=== PATIENT | female | born 1965 | race Caucasian/White ===

== ENCOUNTER → 2016-12-14 | Outpatient (CLI) | payer BC | LOC: RAD 10:13 | PROVIDERS: ATTEND Internal Medicine | DX: C18.7 Malignant neoplasm of sigmoid colon (principal) | CPT/HCPCS: 71260; 74177 ==

== ENCOUNTER → 2017-01-01 | Outpatient (CLI) | payer BC | LOC: SP 09:03 | PROVIDERS: ATTEND Internal Medicine | DX: I82.411 Acute embolism and thrombosis of right femoral vein (principal) | CPT/HCPCS: 93971 ==

== ENCOUNTER → 2017-12-09 | Outpatient (CLI) | payer BC ==
--- NOTE | 2017-12-09 11:31 | RADIOLOGY REPORT (SQ) ---
EXAM DESCRIPTION: CT CHEST WITH COMPLETED DATE/TIME: 12/09/2017 9:38 am REASON FOR STUDY: C18.7 MALIGNANT NEOPLASM OF SIGMOID COLON C18.7 MALIGNANT NEOPLASM OF SIGMOID COL ON COMPARISON: 12/14/2016 TECHNIQUE: CT scan of the chest performed using helical scanning technique with dynamic intravenous contrast injection. Images reviewed with lung, soft tissue and bone windows. Reconstructed coronal and sagittal MPR images reviewed. All images stored on PACS. All CT scanners at this facility use dose modulation, iterative reconstruction, and/or weight based d osing when appropriate to reduce radiation dose to as low as reasonably achievable (ALARA). [facility]: Dose Right [facility]: CareDose [facility]: Dose Right [facility]: Teradose 4D [facility]: TeleDNA CONTRAST TYPE AND DOSE: 93 ML Isovue 370 RENAL FUNCTION: Creatinine -0.6 BUN= 20 RADIATION DOSE: Total exam DLP: 1858.92 LIMITATIONS: None. FINDINGS: LUNGS AND PLEURA: Stable small 3-4 mm nodule in the periphery of the right upper lobe, ax ial image 50, series 6. Slight pleural thickening and mild dependent atelectasis or scar in the post erior aspect of the lungs. No pneumothorax or pleural effusion. The central airways are clear. HILAR AND MEDIASTINAL STRUCTURES: No identified masses or abnormal nodes. HEART AND VASCULAR STRUCTURES: No aneurysm or dissection. No central pulmonary emboli. No pericardi al effusion. HARDWARE: Left Cleiss-V-Kbri catheter, stable finding. UPPER ABDOMEN: No significant findings. Limited exam. THYROID AND OTHER SOFT TISSUES: No masses. No adenopathy. BONES: No significant finding. OTHER: No other significant finding. IMPRESSION: 1 No significant interval changes since the previous examination dated 12/14/2016. 2 Stable small subcentimeter right upper lobe pulmonary nodule. TECHNICAL DOCUMENTATION: JOB ID: [id number] Quality ID # [id number]: Final reports with documentation of one or more dose reduction techniques (e.g., Au tomated exposure control, adjustment of the mA and/or kV according to patient size, use of iterative reconstruction technique) 2010 [employer]- All Rights Reserved Reading location - IP/workstation name: [email or web address]
--- NOTE | 2017-12-09 11:48 | RADIOLOGY REPORT (SQ) ---
EXAM DESCRIPTION: CT ABD/PELVIS WITH IV ORAL COMPLETED DATE/TIME: 12/09/2017 9:38 am REASON FOR STUDY: C18.7 C18.7 MALIGNANT NEOPLASM OF SIGMOID COLON COMPARISON: 12/14/2016 TECHNIQUE: CT scan of the abdomen and pelvis performed using helical scanning technique with dynamic intravenous contrast injection. No oral contrast. Images reviewed with lung, soft tissue, and bone windows. Reconstructed coronal and sagittal MPR images reviewed. Delayed images for evaluation of the urinary system also acquired. All images stored on PACS. All CT scanners at this facility use dose modulation, iterative reconstruction, and/or weight based d osing when appropriate to reduce radiation dose to as low as reasonably achievable (ALARA). [facility]: Dose Right [facility]: CareDose [facility]: Dose Right [facility]: Teradose 4D [facility]: [employer] CONTRAST TYPE AND DOSE: contrast/concentration: Isovue 370.00 mg/ml; Total Contrast Delivered: 93.0 ml; Total Saline Delivered: 71.0 ml RENAL FUNCTION: Creatinine- 0.6 BUN =20 RADIATION DOSE: CT Rad equipment meets quality standard of care and radiation dose reduction techniq ues were employed. CTDIvol: 10.9 - 13.5 mGy. DLP: 1859 mGy-cm.. LIMITATIONS: None. FINDINGS: LOWER CHEST: Please see CT chest report. LIVER: Fatty liver, stable finding. No dilated ducts. The hepatic and portal veins are patent. SPLEEN: Small splenule, normal anatomic variant, stable finding. Splenomegaly, unchanged finding. PANCREAS: No masses. No significant calcifications. No adjacent inflammation or peripancreatic fluid collections. Pancreatic duct not dilated. GALLBLADDER: Porcelain gallbladder, unchanged finding. ADRENAL GLANDS: No significant masses or asymmetry. RIGHT KIDNEY AND URETER: Stable right renal cysts. Extrarenal pelvis on the right, normal anatomic variant. No significant calcifications. No hydronephrosis or hydroureter. LEFT KIDNEY AND URETER: Extrarenal pelvis on the left, normal anatomic variant. Small left renal cy sts. No significant calcifications. No hydronephrosis or hydroureter. AORTA AND VESSELS: Stent and the right common iliac vein, unchanged finding. As on the previous exa mination, low attenuated central density in the IVC extending into the right common iliac vein stent, partial thrombosis cannot be entirely excluded. No aneurysm. No dissection. Two patent right and l eft renal arteries are suggested. RETROPERITONEUM: No retroperitoneal adenopathy, hemorrhage or masses. BOWEL AND PERITONEAL CAVITY: Partial colectomy and stable post surgical changes in the pelvic region with soft tissue thickening/scar in the presacral region at about the S2-S3 level, axial image 46, s eries 605. Constipation. No free fluid. APPENDIX: Normal. PELVIS: Partial hysterectomy. No free fluid. Normal bladder. ABDOMINAL WALL: Post surgical changes, stable finding. BONES: The osseous structures are stable in appearance. OTHER: Small stable hiatal hernia. IMPRESSION: 1 No significant interval changes since the prior examination dated 12/14/2016. Partial colectomy. Stable post surgical changes. 2 Additional stable findings as detailed above in the report. TECHNICAL DOCUMENTATION: JOB ID: [id number] Quality ID # [id number]: Final reports with documentation of one or more dose reduction techniques (e.g., Au tomated exposure control, adjustment of the mA and/or kV according to patient size, use of iterative reconstruction technique) 2010 [employer]- All Rights Reserved Reading location - IP/workstation name: [email or web address]
== END ==
LOC: RAD 09:04
PROVIDERS: ATTEND Internal Medicine
DX: C18.7 Malignant neoplasm of sigmoid colon (principal)
CPT/HCPCS: 71260; 74177

== ENCOUNTER 2018-09-09 07:28 | Emergency (ER) | payer BC ==
[2018-09-09] MEDS ORDERED: MORPHINE SULFATE 10 MG/ML INJ IM ONE (08:36)
--- NOTE | 2018-09-09 08:38 | ER Document Report ---
ED General - General Chief Complaint: Low Back Pain Stated Complaint: BACK PAIN Time Seen by Provider: 09/09/18 07:46 Mode of Arrival: Ambulatory Information source: Patient TRAVEL OUTSIDE OF THE [place] IN LAST 30 DAYS: No - HPI Patient complains to provider of: Back pain Onset: Other - 53-year-old female with a history of colon cancer status post partial colectomy with reanastomosis and radiation and chemo treatment the presents for evaluation of back pain which began while she was at [employer] sitting on the toilet. She denies any fevers or chills, she denies any diarrhea constipation dysuria. She notes that this is worsened over the last day and today while she was at work she was told by her boss to come to the emergency room for evaluation. She is never had any pain like this in the past, does not have any known back pains in the past, denies any history of stones in the past. - Related Data Allergies/Adverse Reactions: Penicillins Allergy (Verified 09/09/18 07:29) Hives Past Medical History - General Information source: Patient - Social History Smoking Status: Never Smoker Chew tobacco use (# tins/day): No Frequency of alcohol use: None Drug Abuse: None Family History: Reviewed & Not Pertinent Patient has suicidal ideation: No Patient has homicidal ideation: No - Past Medical History Cardiac Medical History: Reports: Hx Hypertension Denies: Hx Coronary Artery Disease, Hx Heart Attack Pulmonary Medical History: Denies: Hx Asthma, Hx Bronchitis, Hx COPD, Hx Pneumonia Neurological Medical History: Denies: Hx Cerebrovascular Accident, Hx Seizures Endocrine Medical History: Reports: Hx Diabetes Mellitus Type 2 Renal/ Medical History: Denies: Hx Peritoneal Dialysis Malignancy Medical History: Reports: Hx Colorectal Cancer - Stage II a Musculoskeletal Medical History: Denies Hx Arthritis, Reports Hx Musculoskeletal Trauma Traumatic Medical History: Reports: Hx Fractures Past Surgical History: Reports: Hx Breast Surgery - reduction, Hx Section, Hx Hysterectomy, Hx Orthopedic Surgery - left ankle, Hx Tubal Ligation - Immunizations Immunizations up to date: Yes Hx Diphtheria, Pertussis, Tetanus Vaccination: Yes Review of Systems - Review of Systems -: Yes All other systems reviewed and negative Physical Exam - Vital signs Vitals: Temp Pulse Resp BP Pulse Ox 97.8 F 92 20 144/85 H 99 09/09/18 07:31 09/09/18 07:31 09/09/18 07:31 09/09/18 07:31 09/09/18 07:31 - General General appearance: Appears well, Alert - HEENT Head: Normocephalic, Atraumatic Eyes: Normal Pupils: PERRL - Respiratory Respiratory status: No respiratory distress Chest status: Nontender Breath sounds: Normal Chest palpation: Normal - Cardiovascular Rhythm: Regular Heart sounds: Normal auscultation Murmur: No - Abdominal Inspection: Normal Distension: No distension Bowel sounds: Normal Tenderness: Nontender Organomegaly: No organomegaly - Back Back: Tender - Tenderness in the right paraspinal muscle of the lumbar spine - Extremities General upper extremity: Normal inspection, Nontender, Normal color, Normal ROM , Normal temperature General lower extremity: Normal inspection, Nontender, Normal color, Normal ROM , Normal temperature, Normal weight bearing. No: Oni's sign - Neurological Neuro grossly intact: Yes Cognition: Normal Orientation: AAOx4 Russell Coma Scale Eye Opening: Spontaneous Russell Coma Scale Verbal: Oriented Russell Coma Scale Motor: Obeys Commands Bin Coma Scale Total: 15 Speech: Normal Motor strength normal: LUE, RUE, LLE, RLE Sensory: Normal - Psychological Associated symptoms: Normal affect, Normal mood Course - Re-evaluation Re-evalutation: 09/09/18 16:02 53-year-old female presents for evaluation of low back pain in the setting of having sat down onto a toilet while at [employer] 2 days prior with resultant tenderness and tightness in her right lower back. She has had intense pain there since. She is never any problems like this in the past, has had some back pain but never anything like this. Nothing is made it better, nothing makes it worse. She denies any other episodes to suggest more serious underlying cause of her back pain such as but not limited to AAA, nephrolithiasis or otherwise. Do a concern because of her multiple medical comorbidities however that this could be a more serious underlying cause as such we will obtain CT abdomen and pelvis. We will administer morphine as well as Toradol for muscle pain. Following a ministration of analgesics in the emergency department her pain was much improved. CT the abdomen and pelvis demonstrated a porcelain gallbladder, because of the concern for this representing the development of a potential malignancy will obtain ultrasound of the gallbladder. I did discuss with the patient this finding. She does have a known history of cancer in the abdomen previously with colon cancer status post resection and treatment. Ultrasound demonstrated again a porcelain gallbladder with some sludge however there is no obvious tumor that is appreciable. Spoke to the on-call surgical list Dr. Dorsey who notes that this could be followed up in clinic. She will be referred to the surgical clinic. She will be given a brief course of medication to use for her back pain as I believe this is musculoskeletal in origin. She will be discharged with return precautions and encouraged follow-up with her primary physician. - Vital Signs Vital signs: Temp Pulse Resp BP Pulse Ox 97.6 F 92 16 114/77 96 09/09/18 14:39 09/09/18 07:31 09/09/18 14:39 09/09/18 14:39 09/09/18 14:39 - Laboratory Result Diagrams: 09/09/18 08:30 09/09/18 08:30 Laboratory results interpreted by me: 09/09/18 09/09/18 09/09/18 08:30 08:30 09:25 RBC 5.61 H MCV 77 L MCH 25.6 L RDW 14.7 H BUN 27 H Glucose 300 H Calcium 11.0 H Total Bilirubin 1.6 H AST 46 H Total Protein 8.5 H Urine Protein 100 H Urine Glucose (UA) 150 H Urine Nitrite POSITIVE H Urine Urobilinogen 4.0 H Discharge - Discharge Clinical Impression: Porcelain gallbladder Back pain Qualifiers: Back pain location: back pain in unspecified location Chronicity: acute Back pain laterality: unspecified Qualified Code(s): M54.9 - Dorsalgia, unspecified Condition: Good Disposition: HOME, SELF-CARE Instructions: Gallbladder Disease ([facility]), Muscle Strain ([facility]), Low Back Pain ( [facility]) Additional Instructions: Your seen today in the emergency room for your back pain. While you are being evaluated for your back pain was identified that you have a gallbladder which is thickened. I think that your gallbladder is thickened, I spoke to 1 of the surgical doctors here Dr. Dorsey who suggested that you follow-up in the surgery clinic because they would be happy to see you. Your ultrasound does not demonstrate an obvious cancer in your gallbladder at this time. It is important that you return in case of any worsening abdominal pain. Fevers , chills. Prescriptions: Cyclobenzaprine HCl [Flexeril 5 mg Tablet] 5 mg PO TID #15 tablet Lidocaine HCl [Xylocaine 2% Jelly 30 ml Tube] 30 ml MM DAILYP PRN #1 tube PRN Reason: Referrals: GRAY BULLARD MD [Primary Care Provider] - Follow up as needed JS DORSEY MD [[facility]] - Follow up in 1 week
[2018-09-09 09:01] LABS: ABSOLUTE BASOPHILS # (AUTO) 0.1 10^3/uL (0.0-0.2); ABSOLUTE LYMPHOCYTES (AUTO) 2.2 10^3/uL (0.5-4.7); ABSOLUTE MONOCYTES (AUTO) 0.4 10^3/uL (0.1-1.4); ABSOLUTE NEUT (AUTO) 5.1 10^3/uL (1.7-8.2); BASOPHILS % (AUTO) 0.8 % (0-2); EOSINOPHILS % (AUTO) 0.6 % (0-6); HEMATOCRIT 43.4 % (36.0-47.0); HEMOGLOBIN 14.4 g/dL (12.0-15.5); LYMPHOCYTES % (AUTO) 28.2 % (13-45); MEAN CORPUSCULAR HEMOGLOBIN 25.6 pg (27.0-33.4); MEAN CORPUSCULAR HGB CONC 33.1 g/dL (32.0-36.0); MEAN CORPUSCULAR VOLUME 77 fl (80-97); MONOCYTES % (AUTO) 4.5 % (3-13); PLATELET COUNT 250 10^3/uL (150-450); RED BLOOD COUNT 5.61 10^6/uL (3.72-5.28); RED CELL DISTRIBUTION WIDTH 14.7 % (11.5-14.0); SEGMENTED NEUTROPHILS % (AUTO) 65.9 % (42-78); TOTAL CELLS COUNTED % (AUTO) 100 %; WHITE BLOOD COUNT 7.8 10^3/uL (4.0-10.5)
[2018-09-09] MEDS ORDERED: KETOROLAC TROMETHAMINE INJ/PF 30 MG/1 ML SDV IV ONE (09:33)
[2018-09-09] MEDS ORDERED: LIDOCAINE 5% (700 MG) TRANSDERMAL ADH..PATCH TP ONE (09:33)
[2018-09-09 09:40] LABS: APPEARANCE,URINE CLEAR; URINE SPECIFIC GRAVITY 1.026
[2018-09-09 09:49] LABS: BILIRUBIN,URINE NEGATIVE (NEGATIVE); COLOR,URINE ORANGE; GLUCOSE, URINE 150 mg/dL (NEGATIVE); KETONES,URINE NEGATIVE (NEGATIVE); LEUKOCYTE ESTERASE,URINE NEGATIVE (NEGATIVE); NITRITE,URINE POSITIVE (NEGATIVE); PROTEIN,URINE 100 mg/dL (NEGATIVE)
[2018-09-09 10:08] LABS: ALANINE AMINOTRANSFERASE 44 U/L (9-52); ALBUMIN 4.4 g/dL (3.5-5.0); ALKALINE PHOSPHATASE 111 U/L (38-126); ANION GAP 14 (5-19); ASPARTATE AMINO TRANSFERASE 46 U/L (14-36); BILIRUBIN,TOTAL 1.6 mg/dL (0.2-1.3); BLOOD UREA NITROGEN 27 mg/dL (7-20); CARBON DIOXIDE 24 mmol/L (22-30); CHLORIDE 105 mmol/L (98-107); GLUCOSE 300 mg/dL (75-110); LIPASE 227.9 U/L (23-300); POTASSIUM 4.5 mmol/L (3.6-5.0); SODIUM 143.3 mmol/L (137-145); TOTAL PROTEIN 8.5 g/dL (6.3-8.2)
--- NOTE | 2018-09-09 12:16 | RADIOLOGY REPORT (SQ) ---
EXAM DESCRIPTION: CT ABD/PELVIS WITH IV ONLY COMPLETED DATE/TIME: 09/09/2018 8:38 am REASON FOR STUDY: concern for obstructing left nephrolithiasis COMPARISON: 12/09/2017 TECHNIQUE: CT scan of the abdomen and pelvis performed using helical scanning technique with dynamic intravenous contrast injection. No oral contrast. Images reviewed with lung, soft tissue, and bone windows. Reconstructed coronal and sagittal MPR images reviewed. Delayed images for evaluation of the urinary system also acquired. All images stored on PACS. All CT scanners at this facility use dose modulation, iterative reconstruction, and/or weight based d osing when appropriate to reduce radiation dose to as low as reasonably achievable (ALARA). [facility]: Dose Right [facility]: CareDose [facility]: Dose Right [facility]: Teradose 4D [facility]: IP [employer] CONTRAST TYPE AND DOSE: Omnipaque 350 94 cc RENAL FUNCTION: BUN 27, creatinine 0.93 RADIATION DOSE: . LIMITATIONS: None. FINDINGS: LOWER CHEST: No significant findings. No nodules or infiltrates. LIVER: Normal size. No masses. No dilated ducts. SPLEEN: Normal size. No focal lesions. PANCREAS: No masses. No significant calcifications. No adjacent inflammation or peripancreatic fluid collections. Pancreatic duct not dilated. GALLBLADDER: Porcelain gallbladder with new area of hypoattenuation along the wall measuring 1.1 by 1.8 cm. No secondary evidence of acute cholecystitis. No radiopaque gallstones. ADRENAL GLANDS: No significant masses or asymmetry. RIGHT KIDNEY AND URETER: Stable exophytic right renal cyst. No solid masses. No significant calcif ications. No hydronephrosis or hydroureter. LEFT KIDNEY AND URETER: No solid masses. No significant calcifications. No hydronephrosis or hydr oureter. AORTA AND VESSELS: No aneurysm. Right iliac vein stent, unchanged. RETROPERITONEUM: No retroperitoneal adenopathy, hemorrhage or masses. BOWEL AND PERITONEAL CAVITY: No masses or inflammatory changes. No free fluid or peritoneal masses. APPENDIX: Normal. PELVIS: No mass. No free fluid. Normal bladder. ABDOMINAL WALL: No masses. No hernias. BONES: No significant or acute findings. OTHER: No other significant finding. IMPRESSION: Porcelain gallbladder with new area of hypoattenuation along the wall measuring 1.1 by 1 .8 cm. Consider ultrasound for further characterization. No evidence of nephrolithiasis or obstructive uropathy. TECHNICAL DOCUMENTATION: JOB ID: [id number] Quality ID # [id number]: Final reports with documentation of one or more dose reduction techniques (e.g., Au tomated exposure control, adjustment of the mA and/or kV according to patient size, use of iterative reconstruction technique) 2010 [employer]- All Rights Reserved Reading location - IP/workstation name: [email or web address]
[2018-09-09] MEDS ORDERED: FENTANYL CITRATE INJ/PF 100 MCG/2 ML AMPUL IV ONE (14:02)
--- NOTE | 2018-09-09 14:36 | RADIOLOGY REPORT (SQ) ---
EXAM DESCRIPTION: U/S ABDOMEN LIMITED W/O DOP COMPLETED DATE/TIME: 09/09/2018 2:22 pm REASON FOR STUDY: concern for gallbladder cancer COMPARISON: CT abdomen pelvis examination dated 09/09/2018. Limited abdominal ultrasound dated 04/26 TECHNIQUE: Dynamic and static grayscale images acquired of the abdomen and recorded on PACS. Additio nal selected color Doppler and spectral images recorded. LIMITATIONS: None. FINDINGS: PANCREAS: No masses. Visualized pancreatic duct normal caliber. LIVER: Fatty liver. The liver measures 14.8 cm in length, normal size. LIVER VASCULATURE: Normal directional flow of the main portal vein and hepatic veins. GALLBLADDER: Porcelain gallbladder is suggested. Diffuse internal echoes within the gallbladder lum en may be on the basis of gallbladder sludge. No pericholecystic fluid. ULTRASOUND-DETECTED KAUFMAN'S SIGN: Negative. INTRAHEPATIC DUCTS AND COMMON DUCT: CBD measures 4.5 mm in diameter, normal. The intrahepatic ducts normal caliber. No filling defects. INFERIOR VENA CAVA: Normal flow. AORTA: No aneurysm. RIGHT KIDNEY: The right kidney measures 10.9 cm in length, normal size. Normal echogenicity. A 1.8 x 1.8 x 2.3 cm cyst. No hydronephrosis. No calcifications. PERITONEAL AND PLEURAL SPACE: No ascites or effusions. OTHER: No other significant findings. IMPRESSION: 1. Porcelain gallbladder is identified. Diffuse internal echoes within the gallbladder lumen may be on the basis of gallbladder sludge. Correlation suggested. 2. Right renal cyst. 3. Fatty liver. TECHNICAL DOCUMENTATION: JOB ID: [id number] [employer]- All Rights Reserved Reading location - IP/workstation name: [email or web address]
[2018-09-09 15:39] VITALS: BP 118/71
== END 2018-09-09 15:39 | disposition home or self-care (01) ==
LOC: ER 07:28
DX: M54.5 Low back pain (principal); K82.8 Other specified diseases of gallbladder; I10 Essential (primary) hypertension; E11.9 Type 2 diabetes mellitus without complications; Z85.048 Personal history of other malignant neoplasm of rectum, rectosigmoid junction, and anus; Z90.49 Acquired absence of other specified parts of digestive tract; Z92.21 Personal history of antineoplastic chemotherapy; Z92.3 Personal history of irradiation; Z88.0 Allergy status to penicillin
CPT/HCPCS: 99284; 96372; 96374; 96375; 36415; 87086; 83690; 85025; 80053; 81001; 76705; 74177; J3010; J1885; J2270

== ENCOUNTER 2019-02-24 05:52 | Inpatient (IN) | payer BC ==
[2019-02-24] MEDS ORDERED: MORPHINE SULFATE 10 MG/ML INJ IV ONE ×2 (06:14→08:07)
[2019-02-24] MEDS ORDERED: ONDANSETRON HCL INJ/PF 4 MG/2 ML SDV IV ONE (06:14)
[2019-02-24 06:21] LABS: ABSOLUTE BASOPHILS # (AUTO) 0.1 10^3/uL (0.0-0.2); ABSOLUTE LYMPHOCYTES (AUTO) 1.7 10^3/uL (0.5-4.7); ABSOLUTE MONOCYTES (AUTO) 0.3 10^3/uL (0.1-1.4); ABSOLUTE NEUT (AUTO) 3.9 10^3/uL (1.7-8.2); BASOPHILS % (AUTO) 0.9 % (0-2); EOSINOPHILS % (AUTO) 0.8 % (0-6); HEMATOCRIT 39.6 % (36.0-47.0); HEMOGLOBIN 12.8 g/dL (12.0-15.5); LYMPHOCYTES % (AUTO) 28.4 % (13-45); MEAN CORPUSCULAR HEMOGLOBIN 24.8 pg (27.0-33.4); MEAN CORPUSCULAR HGB CONC 32.3 g/dL (32.0-36.0); MEAN CORPUSCULAR VOLUME 77 fl (80-97); MONOCYTES % (AUTO) 5.5 % (3-13); PLATELET COUNT 197 10^3/uL (150-450); RED BLOOD COUNT 5.16 10^6/uL (3.72-5.28); RED CELL DISTRIBUTION WIDTH 14.7 % (11.5-14.0); SEGMENTED NEUTROPHILS % (AUTO) 64.4 % (42-78); TOTAL CELLS COUNTED % (AUTO) 100 %
[2019-02-24 06:40] LABS: ALANINE AMINOTRANSFERASE 36 U/L (9-52); ALBUMIN 4.1 g/dL (3.5-5.0); ALKALINE PHOSPHATASE 120 U/L (38-126); ANION GAP 13 (5-19); ASPARTATE AMINO TRANSFERASE 29 U/L (14-36); BILIRUBIN,DIRECT 0.3 mg/dL (0.0-0.4); BILIRUBIN,TOTAL 1.2 mg/dL (0.2-1.3); BLOOD UREA NITROGEN 16 mg/dL (7-20); CALCIUM 9.6 mg/dL (8.4-10.2); CARBON DIOXIDE 23 mmol/L (22-30); CHLORIDE 108 mmol/L (98-107); GLUCOSE 273 mg/dL (75-110); LIPASE 378.5 U/L (23-300); POTASSIUM 4.4 mmol/L (3.6-5.0); SODIUM 143.6 mmol/L (137-145); TOTAL PROTEIN 7.4 g/dL (6.3-8.2)
[2019-02-24 06:53] LABS: APPEARANCE,URINE SLIGHTLY-CLOUDY; BILIRUBIN,URINE NEGATIVE (NEGATIVE); COLOR,URINE YELLOW; GLUCOSE, URINE >=500 mg/dL (NEGATIVE); KETONES,URINE TRACE mg/dL (NEGATIVE); LEUKOCYTE ESTERASE,URINE SMALL (NEGATIVE); NITRITE,URINE NEGATIVE (NEGATIVE); PROTEIN,URINE NEGATIVE (NEGATIVE); URINE SPECIFIC GRAVITY 1.028; UROBILINOGEN,URINE NEGATIVE mg/dL (<2.0)
--- NOTE | 2019-02-24 07:40 | EKG REPORT ---
SEVERITY:- ABNORMAL ECG - SINUS RHYTHM PROBABLE LEFT ATRIAL ABNORMALITY LEFT VENTRICULAR HYPERTROPHY BORDERLINE T ABNORMALITIES, INFERIOR LEADS : Confirmed by: Glenna Edmondson MD 24-Feb-2019 07:39:51
--- NOTE | 2019-02-24 07:41 | RADIOLOGY REPORT (SQ) ---
EXAM DESCRIPTION: XR CHEST 2 VIEWS COMPLETED DATE/TME: 02/24/2019 06:12 CLINICAL HISTORY: right chest pain COMPARISON: None. FINDINGS: Frontal and lateral views of the chest. Left IJ dual-lumen Mediport with tip in the SVC. The cardiomediastinal silhouette has normal size and contour. No consolidation, pneumothorax, or pleural effusion. Degenerative change of the spine. Elevation of the right hemidiaphragm is stable. Upper abdominal soft tissues are unremarkable. IMPRESSION: 1. No acute pulmonary process identified.
--- NOTE | 2019-02-24 07:46 | RADIOLOGY REPORT (SQ) ---
EXAM: CT abdomen and pelvis without IV contrast CLINICAL DATA: 53-year-old female with right upper quadrant pain TECHNICAL DATA: Axial CT imaging of the abdomen and pelvis was performed. Sagittal and coronal reconstructed images were then performed. The CT study is performed according to ALARA (as low as reasonably achievable) or ALARA/IMAGE GENTLY, with automatic adjustment of mA and/or kV according to patient size. Performed on: 02/24/2019 at 7:03 AM Comparison: None. FINDINGS: Lung bases: The lung bases are essentially clear. There is minimal fibrosis and/or atelectasis in the right lung base. Liver:The liver is normal in size and configuration. No focal hepatic abnormalities are appreciated on this unenhanced scan. There is mild diffuse decreased attenuation of the liver commonly seen with fatty infiltration similar when compared to the prior study. Spleen: The spleen is top normal in size and is normal in configuration and attenuation. No focal splenic abnormalities are appreciated on this unenhanced scan. Gallbladder and bile duct: The gallbladder is well distended. Again demonstrated is gallbladder wall calcification suggesting a porcelain gallbladder. There is increased attenuation within the gallbladder lumen which may be related to sludge. A mass within the gallbladder lumen is not entirely excluded. There is no biliary ductal dilatation. Pancreas: The pancreas is grossly normal in size and configuration. Adrenal Glands:The adrenal glands are normal in size and configuration. Kidneys:The kidneys are normal in size and configuration. There is no evidence of hydronephrosis. There is no evidence of nephrolithiasis. There is a stable exophytic cyst arising from the lateral cortex of the midpole of the right kidney measuring approximately 2 cm. Stomach:The stomach is grossly normal. There is no definite hiatal hernia. Bowel:The bowel gas pattern is non specific and non obstructive. There is moderate fecal residue scattered throughout the colon. There are postsurgical changes in the region of the rectum. Appendix: The appendix is normal. Free air:There is no evidence of free air. Free fluid: There is no evidence of free fluid. Vasculature: The aorta is normal in caliber and contour. The inferior vena cava is grossly unremarkable. There is a metallic stent within the right common iliac vein. Lymphadenopathy: No pathologic lymphadenopathy is identified. Bladder: The bladder is moderately decompressed on this examination. Reproductive: The uterus is surgically absent. Bones: No acute osseous abnormalities are identified. Soft tissues: No focal soft tissue abnormalities are identified. IMPRESSION: 1. Similar findings when compared to the prior study. 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 A mass in the gallbladder lumen is not entirely excluded.. 2. Fatty infiltration of the liver. 3. Stable right renal cyst. 4. Stable right common iliac vein metallic stent. 5. Postsurgical changes in the region of the rectum. 6. Remote hysterectomy.
--- NOTE | 2019-02-24 07:47 | ER Document Report ---
ED General - General Chief Complaint: Rib Pain Stated Complaint: FLANK PAIN Time Seen by Provider: 02/24/19 06:03 Primary Care Provider: GRAY BULLARD MD [Primary Care Provider] - Follow up as needed TRAVEL OUTSIDE OF THE [place] IN LAST 30 DAYS: No - HPI Notes: Patient is a 53-year-old female who presents emergency department for pain in her right chest/upper abdominal area. Is been present for over a week. It is worsened in the last 48 hours. She was trying to get ready for work this morning and it became unbearable. She states his pain is sharp and stabbing, worsened by deep breaths. She has had a cough, although she states it has not been a significant one. She has had nausea but no emesis. Normal bowel movements for her. No urinary symptoms. - Related Data Allergies/Adverse Reactions: Penicillins Allergy (Verified 09/09/18 07:29) Hives Past Medical History - General Information source: Patient - Social History Smoking Status: Never Smoker Chew tobacco use (# tins/day): No Frequency of alcohol use: None Drug Abuse: None Family History: Reviewed & Not Pertinent Patient has suicidal ideation: No Patient has homicidal ideation: No - Past Medical History Cardiac Medical History: Reports: Hx Hypertension Denies: Hx Coronary Artery Disease, Hx Heart Attack Pulmonary Medical History: Denies: Hx Asthma, Hx Bronchitis, Hx COPD, Hx Pneumonia Neurological Medical History: Denies: Hx Cerebrovascular Accident, Hx Seizures Endocrine Medical History: Reports: Hx Diabetes Mellitus Type 2 Renal/ Medical History: Denies: Hx Peritoneal Dialysis Malignancy Medical History: Reports: Hx Colorectal Cancer - Stage II a Musculoskeletal Medical History: Denies Hx Arthritis, Reports Hx Musculoskeletal Trauma Traumatic Medical History: Reports: Hx Fractures Past Surgical History: Reports: Hx Breast Surgery - reduction, Hx Section, Hx Hysterectomy, Hx Orthopedic Surgery - left ankle, Hx Tubal Ligation, Other - Colon resection - Immunizations Immunizations up to date: Yes Hx Diphtheria, Pertussis, Tetanus Vaccination: Yes Review of Systems - Review of Systems Constitutional: No symptoms reported EENT: No symptoms reported Cardiovascular: No symptoms reported Respiratory: See HPI Gastrointestinal: See HPI Genitourinary: No symptoms reported Female Genitourinary: No symptoms reported Musculoskeletal: No symptoms reported Skin: No symptoms reported Neurological/Psychological: No symptoms reported Physical Exam - Vital signs Vitals: Temp Pulse Resp BP Pulse Ox 98.3 F 97 16 154/97 H 96 02/24/19 05:54 02/24/19 05:54 02/24/19 05:54 02/24/19 05:54 02/24/19 05:54 - Notes Notes: Patient is a 53-year-old female, appears her stated age, in a moderate amount of distress due to pain. Vital signs reviewed, please refer to chart. Head is normocephalic, atraumatic. Pupils equal round, reactive to light. Neck is supp le without meningismus. Heart is regular rate and rhythm. Lungs are clear to auscultation bilaterally. Right chest wall is markedly tender to palpation. Chest wall excursion is equal bilaterally. Abdomen is soft, with moderate tenderness in the right upper quadrant. No rebound or guarding.. Extremities without cyanosis, clubbing. Posterior calves are nontender. Peripheral pulses are equal. Skin reveals erythematous patches and vesicles, isolated to the right thorax, at approximately the level of T11. Patient is awake, alert, neurological exam is nonfocal. Course - Re-evaluation Re-evalutation: 02/24/19 07:44 Patient presents emergency department for evaluation of right chest/abdominal pain. Laboratory investigations were obtained, she is medicated with some Aleve. I am concerned about possible pneumonia in this patient, but also a gallbladder pathology that could be contributing to her pain. Patient certainly also has zoster, but I do not believe that the zoster is responsible for this level of pain. Laboratory investigations reveal an elevated glucose, but as of yet are otherwise unremarkable. Awaiting CT scan results. 02/24/19 10:09 Ultrasound is been ordered and resulted. Findings concerning for acute cholecystitis. She does not fact have a 1.5 cm gallstone as well as sludge. Positive sonographic Pappas sign. I spoke with Dr. Dc, on-call surgeon. He will come down to the ED to evaluate the patient. 02/24/19 11:02 Dr. Dc came to the department. He will admit her for further care. Patient was given IV ceftriaxone and admitted to the hospital. - Vital Signs Vital signs: Temp Pulse Resp BP Pulse Ox 98.3 F 97 16 154/97 H 96 02/24/19 05:54 02/24/19 05:54 02/24/19 05:54 02/24/19 05:54 02/24/19 05:54 - Laboratory Result Diagrams: 02/24/19 06:05 02/24/19 06:05 Laboratory results interpreted by me: 02/24/19 02/24/19 02/24/19 06:05 06:05 06:38 MCV 77 L MCH 24.8 L RDW 14.7 H Chloride 108 H Glucose 273 H Lipase 378.5 H Urine Glucose (UA) >=500 H Urine Ketones TRACE H Ur Leukocyte Esterase SMALL H - EKG Interpretation by Me Additional EKG results interpreted by me: 02/24/19 07:47 Sinus mechanism with a rate of 85 bpm. Left axis deviation. Nonspecific ST changes, but no acute changes concerning for ischemia or infarction. No significant change compared to prior study of July 24, 2016 Discharge - Discharge Clinical Impression: Acute cholecystitis Cholelithiasis Qualifiers: Cholelithiasis location: gallbladder Cholecystitis presence: with cholecystitis Condition: Stable Disposition: ADMITTED INPATIENT Admitting Provider: Surgicalist - [facility] Referrals: GRAY BULLARD MD [Primary Care Provider] - Follow up as needed
--- NOTE | 2019-02-24 09:51 | RADIOLOGY REPORT (SQ) ---
EXAM DESCRIPTION: U/S ABDOMEN LIMITED W/O DOP COMPLETED DATE/TIME: 02/24/2019 9:35 am REASON FOR STUDY: eval gallbladder COMPARISON: 09/09/2018 TECHNIQUE: Dynamic and static grayscale images acquired of the abdomen and recorded on PACS. Additio nal selected color Doppler and spectral images recorded. LIMITATIONS: None. FINDINGS: PANCREAS: No masses. Visualized pancreatic duct normal caliber. LIVER: No masses. Increased echogenicity. LIVER VASCULATURE: Normal directional flow of the main portal vein and hepatic veins. 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 Gallbladder wall measures 0.4 cm. There is gall sludge and an echogenic gallstone m easuring 1.4 cm. ULTRASOUND-DETECTED PAPPAS'S SIGN: Positive. INTRAHEPATIC DUCTS AND COMMON DUCT: CBD and intrahepatic ducts normal caliber. No filling defects. INFERIOR VENA CAVA: Normal flow. AORTA: No aneurysm. RIGHT KIDNEY: Normal size. Normal echogenicity. No solid or suspicious masses. Simple appearing exo phytic cysts. No hydronephrosis. No calcifications. PERITONEAL AND RIGHT PLEURAL SPACE: No ascites or effusions. OTHER: No other significant findings. IMPRESSION: 1. Redemonstrated peripheral calcification of the gallbladder wall, in keeping with por celain gallbladder. There is gall sludge and echogenic gallstone measuring 1.4 cm. Positive sonogra phic Pappas's sign. No biliary ductal dilation. Findings are concerning for acute cholecystitis. 2. Hepatic steatosis. TECHNICAL DOCUMENTATION: JOB ID: [id number] [employer]- All Rights Reserved Reading location - IP/workstation name: [email or web address]
[2019-02-24] MEDS ORDERED: NORMAL SALINE 1000 ML 1,000 ML IV ONE (10:51)
[2019-02-24] MEDS ORDERED: CEFTRIAXONE 1 GM/D5W RTU 50 ML IV ONE (10:57)
[2019-02-24] MEDS ORDERED: CEFTRIAXONE 2 GM/D5W RTU 2 GM/50 ML RTUPB IV ONE (11:00)
[2019-02-24] MEDS ORDERED: DEXTROSE 50%-WATER 25 GM/50 ML DISP.SYRIN IV PRN ×2 (11:04)
[2019-02-24] MEDS ORDERED: DEXTROSE 40% GEL 15 GM TUBE PO PRN ×2 (11:04)
[2019-02-24] MEDS ORDERED: GLUCAGON,HUMAN RECOMB 1 MG INJ IM PRN (11:04)
[2019-02-24] MEDS: LEVOFLOXACIN 500 MG/D5W RTU 500 MG/100 ML RTUPB IV SCH (13:30)
[2019-02-24] MEDS: INSULIN REG, HUMAN 100 UNIT/ML 3 ML VIAL (PYX) SUBCUT SCH ×3 (13:37→23:25)
[2019-02-24] MEDS: HYDROMORPHONE HCL INJ/PF 2 MG/ML AMPULE IV PRN ×3 (15:33→23:29)
[2019-02-24] MEDS: LISINOPRIL 10 MG TABLET PO SCH (16:43)
--- NOTE | 2019-02-24 16:43 | PDOC H&P ---
History of Present Illness Admission Date/PCP: GRAY BULLARD MD Patient complains of: Abdominal pain History of Present Illness: ETHAN LEDESMA is a 53 year old female presenting with 1-1/2-week history of intermittent right upper quadrant abdominal pain that became persistent and severe along with epigastric abdominal pain in the last couple of days. Patient has had associated nausea but no emesis. No fevers or chills. No recent weight loss. No jaundice. Patient was diagnosed with a porcelain gallbladder several months ago but she had not seen a surgeon as recommended at that time. Patient does suffer from diabetes. Past Medical History Cardiac Medical History: Reports: Hypertension Denies: Coronary Artery Disease, Myocardial Infarction Pulmonary Medical History: Denies: Asthma, Bronchitis, Chronic Obstructive Pulmonary Disease (COPD), Pneumonia Neurological Medical History: Denies: Seizures Endocrine Medical History: Reports: Diabetes Mellitus Type 2 Malignancy Medical History: Reports: Colorectal Cancer - Status post low anterior resection about 3 years ago. Status post chemo. Musculoskeltal Medical History: Denies: Arthritis Hematology: Reports: Anemia Past Surgical History Past Surgical History: Reports: Section, Hysterectomy, Orthopedic Surgery - left ankle, Tubal Ligation, Other - Low anterior resection Social History Smoking Status: Never Smoker Frequency of Alcohol Use: None Hx Recreational Drug Use: No Family History Family History: Reviewed & Not Pertinent Parental Family History Reviewed: Yes - Mother with colon and pancreatic cancer Children Family History Reviewed: Yes Sibling(s) Family History Reviewed.: Yes Medication/Allergy Home Medications: Glipizide [Glucotrol] 5 mg PO QAM 02/24/19 Lisinopril/Hydrochlorothiazide [Lisinopril-Hctz 20-12.5 mg Tab] 1 each PO DAILY 02/24/19 Metformin HCl [Glucophage 500 mg Tablet] 1,000 mg PO QAM 02/24/19 Metformin HCl [Glucophage 500 mg Tablet] 1,000 mg PO QHS 02/24/19 Metformin HCl [Glucophage 500 mg Tablet] 500 mg PO NOON 02/24/19 Allergies/Adverse Reactions: Penicillins Allergy (Verified 09/09/18 07:29) Hives Review of Systems All systems: reviewed and no additional remarkable complaints except as stated Gastrointestinal: PRESENT: as per HPI Physical Exam Vital Signs: Temp Pulse Resp BP Pulse Ox 98.3 F 97 16 154/97 H 96 02/24/19 05:54 02/24/19 05:54 02/24/19 05:54 02/24/19 05:54 02/24/19 05:54 Intake & Output 02/23/19 02/24/19 02/25/19 06:59 06:59 06:59 Weight 85.729 kg General appearance: PRESENT: no acute distress, cooperative Eye exam: PRESENT: conjunctiva pink Neck exam: PRESENT: other - Supple with no masses. Respiratory exam: PRESENT: clear to auscultation mani Cardiovascular exam: PRESENT: RRR GI/Abdominal exam: PRESENT: other - Soft, mildly distended, tender across her upper abdomen, especially in the right upper quadrant. Extremities exam: PRESENT: other - No swelling and no tenderness Neurological exam: PRESENT: alert, awake Psychiatric exam: PRESENT: appropriate affect Skin exam: PRESENT: warm Results Laboratory Results: 02/24/19 06:05 02/24/19 06:05 02/24/19 02/24/19 02/24/19 06:05 06:05 06:38 WBC 6.0 RBC 5.16 Hgb 12.8 Hct 39.6 MCV 77 L MCH 24.8 L MCHC 32.3 RDW 14.7 H Plt Count 197 Seg Neutrophils % 64.4 Lymphocytes % 28.4 Monocytes % 5.5 Eosinophils % 0.8 Basophils % 0.9 Absolute Neutrophils 3.9 Absolute Lymphocytes 1.7 Absolute Monocytes 0.3 Absolute Eosinophils 0.0 Absolute Basophils 0.1 Sodium 143.6 Potassium 4.4 Chloride 108 H Carbon Dioxide 23 Anion Gap 13 BUN 16 Creatinine 0.66 Est GFR ( Amer) > 60 Est GFR (Non-Af Amer) > 60 Glucose 273 H Calcium 9.6 Total Bilirubin 1.2 AST 29 ALT 36 Alkaline Phosphatase 120 Total Protein 7.4 Albumin 4.1 Lipase 378.5 H Urine Color YELLOW Urine Appearance SLIGHTLY-CLOUDY Urine pH 5.0 Ur Specific [place] 1.028 Urine Protein NEGATIVE Urine Glucose (UA) >=500 H Urine Ketones TRACE H Urine Blood NEGATIVE Urine Nitrite NEGATIVE Ur Leukocyte Esterase SMALL H Urine WBC (Auto) 12 Urine RBC (Auto) 4 Impressions: Chest X-Ray 02/24/19 06:12 IMPRESSION: 1. No acute pulmonary process identified. Abdomen/Pelvis CT 02/24/19 06:13 IMPRESSION: 1. Similar findings when compared to the prior study. 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 A mass in the gallbladder lumen is not entirely excluded.. 2. Fatty infiltration of the liver. 3. Stable right renal cyst. 4. Stable right common iliac vein metallic stent. 5. Postsurgical changes in the region of the rectum. 6. Remote hysterectomy. Abdomen Ultrasound 02/24/19 08:06 IMPRESSION: 1. Redemonstrated peripheral calcification of the gallbladder wall, in keeping with porcelain gallbladder. There is gall sludge and echogenic gallstone measuring 1.4 cm. Positive sonographic Pappas's sign. No biliary ductal dilation. Findings are concerning for acute cholecystitis. 2. Hepatic steatosis. Assessment & Plan - Diagnosis (1) Pancreatitis Qualifiers: Chronicity: acute Is this a current diagnosis for this admission?: Yes Plan: Possible gallstone pancreatitis. Will observe. Follow her lipase. She will need her gallbladder removed during this hospital admission. 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 Patient was noted with a porcelain gallbladder last year. The CT scan images of the gallbladder does not look much different from last year. The radiologist notes that he cannot exclude a gallbladder mass however ultrasound showed a large gallstone but otherwise no mass in the gallbladder and I do not think she has gallbladder cancer. She has acute cholecystitis. She will require a cholecystectomy during this admission. We will plan a laparoscopic cholecystectomy, possible open cholecystectomy when her pancreatitis has subsided. We will leave her on antibiotics and bowel rest in the meantime.
[2019-02-24] MEDS: NORMAL SALINE 1000 ML 1,000 ML IV PRN (21:54)
[2019-02-25] MEDS: HYDROMORPHONE HCL INJ/PF 2 MG/ML AMPULE IV PRN ×3 (03:31→11:15)
[2019-02-25] MEDS: INSULIN REG, HUMAN 100 UNIT/ML 3 ML VIAL (PYX) SUBCUT SCH ×3 (05:18→17:38)
[2019-02-25 07:47] LABS: HEMATOCRIT 35.4 % (36.0-47.0); HEMOGLOBIN 11.5 g/dL (12.0-15.5); MEAN CORPUSCULAR HEMOGLOBIN 25.1 pg (27.0-33.4); MEAN CORPUSCULAR HGB CONC 32.6 g/dL (32.0-36.0); MEAN CORPUSCULAR VOLUME 77 fl (80-97); PLATELET COUNT 167 10^3/uL (150-450); RED BLOOD COUNT 4.59 10^6/uL (3.72-5.28); RED CELL DISTRIBUTION WIDTH 14.7 % (11.5-14.0); WHITE BLOOD COUNT 4.8 10^3/uL (4.0-10.5)
[2019-02-25 08:10] LABS: ALANINE AMINOTRANSFERASE 37 U/L (9-52); ALBUMIN 3.2 g/dL (3.5-5.0); ALKALINE PHOSPHATASE 66 U/L (38-126); ANION GAP 8 (5-19); ASPARTATE AMINO TRANSFERASE 24 U/L (14-36); BILIRUBIN,DIRECT 0.2 mg/dL (0.0-0.4); BILIRUBIN,TOTAL 1.1 mg/dL (0.2-1.3); BLOOD UREA NITROGEN 11 mg/dL (7-20); CALCIUM 8.8 mg/dL (8.4-10.2); CARBON DIOXIDE 27 mmol/L (22-30); CHLORIDE 108 mmol/L (98-107); GLUCOSE 138 mg/dL (75-110); LIPASE 156.8 U/L (23-300); POTASSIUM 3.9 mmol/L (3.6-5.0); SODIUM 142.9 mmol/L (137-145)
[2019-02-25] MEDS ORDERED: ENOXAPARIN SODIUM INJ 40 MG/0.4 ML DISP.SYRIN SUBCUT SCH (10:00)
[2019-02-25] MEDS ORDERED: (PENDING PHARMACY ID) (Lisinopril [Prinivil] 20 MG) PO SCH (10:00)
[2019-02-25] MEDS: LEVOFLOXACIN 500 MG/D5W RTU 500 MG/100 ML RTUPB IV SCH (10:09)
[2019-02-25] MEDS: LISINOPRIL 10 MG TABLET PO SCH ×2 (10:22→18:48)
--- NOTE | 2019-02-25 11:23 | PDOC PROGRESS REPORT ---
Subjective Progress Note for:: 02/25/19 Subjective:: 53-year-old female with right upper quadrant pain, nausea, vomiting, and fatty food intolerance. The patient's pain is improved with pain medications. She denies nausea or vomiting. Reason For Visit: GALLSTONE PANCREATITIS Physical Exam Vital Signs: Temp Pulse Resp BP Pulse Ox 98.1 F 77 16 152/90 H 95 02/24/19 14:58 02/24/19 14:58 02/24/19 14:58 02/24/19 14:58 02/24/19 14:58 Intake & Output 02/24/19 02/25/19 02/26/19 06:59 06:59 06:59 Intake Total 1330 1000 Balance 1330 1000 Weight 85.729 kg 85.1 kg General appearance: PRESENT: no acute distress, cooperative Head exam: PRESENT: atraumatic, normocephalic Eye exam: PRESENT: EOMI, PERRLA. ABSENT: scleral icterus Neck exam: ABSENT: meningismus, tenderness, thyromegaly, tracheal deviation Respiratory exam: PRESENT: unlabored. ABSENT: tachypnea, wheezes Cardiovascular exam: PRESENT: RRR Vascular exam: ABSENT: pallor GI/Abdominal exam: PRESENT: guarding - Voluntary, soft, tenderness - Right upper quadrant. ABSENT: distended, firm Rectal exam: PRESENT: deferred Extremities exam: ABSENT: clubbing Musculoskeletal exam: ABSENT: deformity Neurological exam: PRESENT: alert, awake, oriented to person, oriented to place, oriented to time, oriented to situation, CN II-XII grossly intact. ABSENT: motor sensory deficit Focused psych exam: ABSENT: delusional Skin exam: ABSENT: cyanosis, erythema, jaundice Results Laboratory Results: 02/25/19 06:59 02/25/19 06:59 02/25/19 02/25/19 06:59 06:59 WBC 4.8 RBC 4.59 Hgb 11.5 L Hct 35.4 L MCV 77 L MCH 25.1 L MCHC 32.6 RDW 14.7 H Plt Count 167 Sodium 142.9 Potassium 3.9 Chloride 108 H Carbon Dioxide 27 Anion Gap 8 BUN 11 Creatinine 0.63 Est GFR ( Amer) > 60 Est GFR (Non-Af Amer) > 60 Glucose 138 H Calcium 8.8 Total Bilirubin 1.1 AST 24 ALT 37 Alkaline Phosphatase 66 Total Protein 6.0 L Albumin 3.2 L Lipase 156.8 Impressions: Chest X-Ray 02/24/19 06:12 IMPRESSION: 1. No acute pulmonary process identified. Abdomen/Pelvis CT 02/24/19 06:13 IMPRESSION: 1. Similar findings when compared to the prior study. 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 A mass in the gallbladder lumen is not entirely excluded.. 2. Fatty infiltration of the liver. 3. Stable right renal cyst. 4. Stable right common iliac vein metallic stent. 5. Postsurgical changes in the region of the rectum. 6. Remote hysterectomy. Abdomen Ultrasound 02/24/19 08:06 IMPRESSION: 1. Redemonstrated peripheral calcification of the gallbladder wall, in keeping with porcelain gallbladder. There is gall sludge and echogenic gallstone measuring 1.4 cm. Positive sonographic Pappas's sign. No biliary ductal dilation. Findings are concerning for acute cholecystitis. 2. Hepatic steatosis. Assessment & Plan - Diagnosis (1) Acute cholecystitis Is this a current diagnosis for this admission?: Yes - Plan Summary Plan Summary: This is a 53-year-old female admitted with acute cholecystitis. Her lab work is improved today. Her lipase is normal. I have recommended cholecystectomy for her. She has agreed to this. Risks/benefits discussed, informed consent obtained, and all questions answered.
[2019-02-25] MEDS: NORMAL SALINE 1000 ML 1,000 ML IV PRN (12:20)
[2019-02-25] MEDS ORDERED: SUCCINYLCHOLINE CHLORIDE INJ 200 MG/10 ML VIAL ONE (13:34)
[2019-02-25] MEDS ORDERED: BUPIVACAINE HCL 0.25 % INJ/PF (2.5 MG/1 ML) 30 ML VIAL ONE (15:45)
[2019-02-25] MEDS ORDERED: MIDAZOLAM 2 MG/2 ML INJ ONE (15:47)
[2019-02-25] MEDS ORDERED: FENTANYL CITRATE INJ/PF 100 MCG/2 ML AMPUL ONE ×2 (15:47→15:48)
[2019-02-25] MEDS ORDERED: PROPOFOL INJ 200 MG/20 ML VIAL IV ONE (15:48)
[2019-02-25] MEDS ORDERED: KETOROLAC TROMETHAMINE 60 MG/2 ML SDV ONE (15:48)
[2019-02-25] MEDS ORDERED: ONDANSETRON HCL INJ/PF 4 MG/2 ML SDV ONE (15:48)
[2019-02-25] MEDS ORDERED: DEXAMETHASONE SOD PHOSPHATE INJ 4 MG/1 ML VIAL ONE (15:48)
--- NOTE | 2019-02-25 16:17 | PDOC CONSULTATION ---
Consultation Consult Date: 02/25/19 Provider Consulted: GRAY BULLARD Consult reason:: Hematology/Oncology consultation was requested for patient with a history of colon cancer. History of Present Illness Admission Date/PCP: 02/24/19 11:13 GRAY BULLARD MD History of Present Illness: ETHAN LEDESMA is a 53 year old female who was diagnosed with sigmoid colon cancer in 2016. Stage IIA. She underwent surgery followed by adjuvant XELOX chemotherapy for 6 months, which completed in 10/2016. She has been without evidence of cancer recurrence since that time. She presented with a 7-10 day history of abdominal pain, progressive with nausea and vomiting as well. She was found to have pancreatitis and possible cholelithiasis. Today, she states that she is still having abdominal pain, but meds are helping. She has not had anything to eat or drink in over 24 hours. She tells me that they are waiting for her pancreas to calm down before taking her gall bladder out. She is hoping it will be in the next day or 2. Past Medical History Cardiac Medical History: Reports: Hypertension Denies: Coronary Artery Disease, Myocardial Infarction Pulmonary Medical History: Denies: Asthma, Bronchitis, Chronic Obstructive Pulmonary Disease (COPD), Pneumonia Neurological Medical History: Denies: Seizures Endocrine Medical History: Reports: Diabetes Mellitus Type 2 Malignancy Medical History: Reports: Colorectal Cancer - Status post low ant erior resection about 3 years ago. Status post chemo. Musculoskeltal Medical History: Denies: Arthritis Hematology: Reports: Anemia Past Surgical History Past Surgical History: Reports: Section, Hysterectomy, Orthopedic Surgery - left ankle, Tubal Ligation, Other - Low anterior resection Social History Smoking Status: Never Smoker Frequency of Alcohol Use: None Hx Recreational Drug Use: No Drugs: None Hx Prescription Drug Abuse: No - Advance Directive Resuscitation Status: Full Code Family History Family History: Reviewed & Not Pertinent Parental Family History Reviewed: Yes - Mother with pancreatic and colon cancers. Children Family History Reviewed: No Sibling(s) Family History Reviewed.: Yes - cousin with melanoma. Medication/Allergy Home Medications: Glipizide [Glucotrol] 5 mg PO QAM 02/24/19 Lisinopril/Hydrochlorothiazide [Lisinopril-Hctz 20-12.5 mg Tab] 1 each PO DAILY 02/24/19 Metformin HCl [Glucophage 500 mg Tablet] 1,000 mg PO QAM 02/24/19 Metformin HCl [Glucophage 500 mg Tablet] 1,000 mg PO QHS 02/24/19 Metformin HCl [Glucophage 500 mg Tablet] 500 mg PO NOON 02/24/19 Allergies/Adverse Reactions: Penicillins Allergy (Verified 09/09/18 07:29) Hives Review of Systems Constitutional: ABSENT: fever(s), headache(s) Eyes: ABSENT: visual disturbances Ears: ABSENT: hearing changes Nose, Mouth, and Throat: ABSENT: sore throat Cardiovascular: ABSENT: chest pain Respiratory: ABSENT: dyspnea Gastrointestinal: PRESENT: as per HPI, abdominal pain Genitourinary: ABSENT: dysuria Integumentary: ABSENT: rash Neurological: ABSENT: confusion Hematologic/Lymphatic: ABSENT: lymphadenopathy Physical Exam Vital Signs: Temp Pulse Resp BP Pulse Ox 98.0 F 77 17 144/85 H 98 02/25/19 11:41 02/25/19 11:41 02/25/19 11:41 02/25/19 11:41 02/25/19 11:41 Intake & Output 02/24/19 02/25/19 02/26/19 06:59 06:59 06:59 Intake Total 1330 1100 Balance 1330 1100 Weight 85.729 kg 85.1 kg General appearance: PRESENT: no acute distress, well-developed, well-nourished Exam: 53 year old female. Head exam: PRESENT: normocephalic Eye exam: PRESENT: EOMI Mouth exam: PRESENT: tongue midline Neck exam: ABSENT: lymphadenopathy, tenderness Respiratory exam: PRESENT: clear to auscultation mani, unlabored Cardiovascular exam: PRESENT: RRR GI/Abdominal exam: PRESENT: diminished bowel sounds, soft, tenderness Extremities exam: ABSENT: pedal edema Neurological exam: PRESENT: alert, awake Psychiatric exam: PRESENT: appropriate affect Skin exam: PRESENT: normal color Results Laboratory Results: 02/25/19 06:59 02/25/19 06:59 02/25/19 02/25/19 06:59 06:59 WBC 4.8 RBC 4.59 Hgb 11.5 L Hct 35.4 L MCV 77 L MCH 25.1 L MCHC 32.6 RDW 14.7 H Plt Count 167 Sodium 142.9 Potassium 3.9 Chloride 108 H Carbon Dioxide 27 Anion Gap 8 BUN 11 Creatinine 0.63 Est GFR ( Amer) > 60 Est GFR (Non-Af Amer) > 60 Glucose 138 H Calcium 8.8 Total Bilirubin 1.1 AST 24 ALT 37 Alkaline Phosphatase 66 Total Protein 6.0 L Albumin 3.2 L Lipase 156.8 Impressions: Chest X-Ray 02/24/19 06:12 IMPRESSION: 1. No acute pulmonary process identified. Abdomen/Pelvis CT 02/24/19 06:13 IMPRESSION: 1. Similar findings when compared to the prior study. 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 A mass in the gallbladder lumen is not entirely excluded.. 2. Fatty infiltration of the liver. 3. Stable right renal cyst. 4. Stable right common iliac vein metallic stent. 5. Postsurgical changes in the region of the rectum. 6. Remote hysterectomy. Abdomen Ultrasound 02/24/19 08:06 IMPRESSION: 1. Redemonstrated peripheral calcification of the gallbladder wall, in keeping with porcelain gallbladder. There is gall sludge and echogenic gallstone measuring 1.4 cm. Positive sonographic Pappas's sign. No biliary ductal dilation. Findings are concerning for acute cholecystitis. 2. Hepatic steatosis. Status: Image reviewed by me Assessment & Plan - Diagnosis (1) Pancreatitis Qualifiers: Chronicity: acute Is this a current diagnosis for this admission?: Yes Plan: I will defer to surgical team. (2) Acute cholecystitis Is this a current diagnosis for this admission?: Yes (3) Cholecystitis with cholelithiasis Qualifiers: Cholecystitis acuity: acute and chronic Is this a current diagnosis for this admission?: Yes Plan: I will defer to surgical team. - Plan Summary Plan Summary: I do not see any evidence of cancer at this time. Await final pathology report after gall bladder removal. Will continue to follow with you. Her anemia is very mild. Consider iron studies. No indication for blood transfusion at present.
[2019-02-25] MEDS ORDERED: FENTANYL CITRATE INJ/PF 100 MCG/2 ML AMPUL IV PRN ×3 (16:25)
[2019-02-25] MEDS ORDERED: OXYCODONE-ACETAMINOPHEN 5-325 MG TABLET PO PRN ×2 (16:25)
[2019-02-25] MEDS ORDERED: MORPHINE SULFATE 10 MG/ML INJ IV PRN (16:25)
[2019-02-25] MEDS ORDERED: PROMETHAZINE HCL INJ 25 MG/1 ML VIAL IV PRN (16:25)
[2019-02-25] MEDS ORDERED: DIPHENHYDRAMINE HCL 50 MG/ML VIAL IV PRN (16:25)
[2019-02-25] MEDS ORDERED: MEPERIDINE HCL/PF INJ 25 MG/1 ML DISP.SYRIN IV PRN (16:25)
[2019-02-25] MEDS ORDERED: ONDANSETRON HCL INJ/PF 4 MG/2 ML SDV IV PRN ×2 (16:25→18:25)
--- NOTE | 2019-02-25 18:06 | Operative Report ---
Nonrecallable Operative Report DATE OF SURGERY: 02/25/19 PREOPERATIVE DIAGNOSIS: Acute cholecystitis POSTOPERATIVE DIAGNOSIS: Same as above OPERATION: laparoscopic cholecystectomy SURGEON: MARK GAVIN ANESTHESIA: GA TISSUE REMOVED OR ALTERED: Gallbladder COMPLICATIONS: None apparent ESTIMATED BLOOD LOSS: 30 cc PROCEDURE: Drains/implants: None. Procedure in detail: After informed consent was obtained, the patient was brought into the operating room and laid in the supine position. The area of the abdomen was prepped and draped in a normal sterile fashion. An incision was created in the supraumbilical incision using a 15 blade scalpel. Dissection was carried through the subcutaneous tissue using sharp and blunt dissection. The cicatrix was identified, grasped with a Charisma clamp, and retracted upwards. The linea alba fascia was incised sharply, the abdomen was entered sharply. The balloon trocar was inserted, and pneumoperitoneum was achieved. A subxiphoid 5 mm port was placed under direct laparoscopic visualization. 2 more 5 mm ports were placed in the right upper quadrant in similar fashion. Atraumatic graspers were placed through the 5 mm ports. The gallbladder was retracted cephalad and laterally. Dissection was begun in the triangle of Calot. The infundibulum of the gallbladder had a dense inflammatory reaction with acute and chronic inflammation present. The cystic duct and cystic artery were fully visualized and skeletonized, seeing the liver through the triangle. Once the critical view of safety was obtained, the cystic artery was clipped and cut with laparoscopic instruments. The cystic duct was found to be dilated, and was felt that it would not accept an Endo Clip. Once this was confirmed, the gallbladder was freed from the liver using Bovie electrocautery. Please note that the gallbladder was not perforated upon this maneuver. A PDS Endoloop was secured around the cystic duct. Another Endoloop was secured around the infundibulum. The cystic duct was then divided between the PDS Endoloops. The gallbladder was placed into an Endo Catch bag, and pulled out through the supraumbilical incision. The camera was reinserted. There was again noted to be no leakage or spillage of bile. There is was small amount of blood in the abdomen which was suctioned. No irrigation was used. Once this was confirmed, the 5 mm trochars were removed under direct laparoscopic visualization. The supraumbilical trocar was removed, and pneumoperitoneum was relieved. The supraumbilical fascia was then closed using 0 Vicryl suture in [id number] fashion. The overlying skin was closed using 4-0 Vicryl Rapide suture in subcuticular fashion. Dressings were placed, and the procedure was concluded. All sponge, instrument, and needle counts were correct x2. Condition: Stable.
[2019-02-25] MEDS ORDERED: HYDROCODONE/ACETAMINOPHEN 10-325 MG TABLET PO PRN (18:25)
[2019-02-25] MEDS: KETOROLAC TROMETHAMINE INJ/PF 30 MG/1 ML SDV IV SCH (22:11)
[2019-02-26] MEDS: KETOROLAC TROMETHAMINE INJ/PF 30 MG/1 ML SDV IV SCH (06:20)
[2019-02-26 06:35] LABS: ABSOLUTE MONOCYTES (AUTO) 0.3 10^3/uL (0.1-1.4); ABSOLUTE NEUT (AUTO) 4.4 10^3/uL (1.7-8.2); BASOPHILS % (AUTO) 0.3 % (0-2); HEMATOCRIT 34.5 % (36.0-47.0); HEMOGLOBIN 11.5 g/dL (12.0-15.5); LYMPHOCYTES % (AUTO) 18.1 % (13-45); MEAN CORPUSCULAR HEMOGLOBIN 25.3 pg (27.0-33.4); MEAN CORPUSCULAR HGB CONC 33.3 g/dL (32.0-36.0); MEAN CORPUSCULAR VOLUME 76 fl (80-97); MONOCYTES % (AUTO) 5.5 % (3-13); PLATELET COUNT 164 10^3/uL (150-450); RED BLOOD COUNT 4.54 10^6/uL (3.72-5.28); SEGMENTED NEUTROPHILS % (AUTO) 76.1 % (42-78); TOTAL CELLS COUNTED % (AUTO) 100 %; WHITE BLOOD COUNT 5.7 10^3/uL (4.0-10.5)
[2019-02-26 06:53] LABS: ALANINE AMINOTRANSFERASE 63 U/L (9-52); ALBUMIN 3.3 g/dL (3.5-5.0); ALKALINE PHOSPHATASE 65 U/L (38-126); ANION GAP 13 (5-19); ASPARTATE AMINO TRANSFERASE 60 U/L (14-36); BILIRUBIN,DIRECT 0.3 mg/dL (0.0-0.4); BILIRUBIN,TOTAL 1.2 mg/dL (0.2-1.3); BLOOD UREA NITROGEN 19 mg/dL (7-20); CALCIUM 9.2 mg/dL (8.4-10.2); CARBON DIOXIDE 21 mmol/L (22-30); CHLORIDE 107 mmol/L (98-107); GLUCOSE 235 mg/dL (75-110); POTASSIUM 4.2 mmol/L (3.6-5.0); SODIUM 141.2 mmol/L (137-145)
[2019-02-26 08:49] VITALS: BP 144/85
--- NOTE | 2019-02-26 09:05 | PDOC PROGRESS REPORT ---
Subjective Progress Note for:: 02/26/19 Subjective:: Feels well. Preoperative pain gone. Tolerating diet well. Reason For Visit: GALLSTONE PANCREATITIS Physical Exam Vital Signs: Temp Pulse Resp BP Pulse Ox 97.8 F 84 15 144/85 H 96 02/26/19 08:48 02/26/19 08:48 02/26/19 08:48 02/26/19 08:48 02/26/19 08:48 Intake & Output 02/25/19 02/26/19 02/27/19 06:59 06:59 06:59 Intake Total 1330 3682 Output Total 25 Balance 1330 3657 Weight 85.1 kg 84.9 kg General appearance: PRESENT: no acute distress Respiratory exam: PRESENT: clear to auscultation mani Cardiovascular exam: PRESENT: RRR GI/Abdominal exam: PRESENT: other - Wounds are clean dry and intact with Steri- Strips. Abdomen is soft nondistended with no significant tenderness. Results Laboratory Results: 02/26/19 05:49 02/26/19 05:49 02/26/19 02/26/19 05:49 05:49 WBC 5.7 RBC 4.54 Hgb 11.5 L Hct 34.5 L MCV 76 L MCH 25.3 L MCHC 33.3 RDW 15.0 H Plt Count 164 Seg Neutrophils % 76.1 Lymphocytes % 18.1 Monocytes % 5.5 Eosinophils % 0.0 Basophils % 0.3 Absolute Neutrophils 4.4 Absolute Lymphocytes 1.0 Absolute Monocytes 0.3 Absolute Eosinophils 0.0 Absolute Basophils 0.0 Sodium 141.2 Potassium 4.2 Chloride 107 Carbon Dioxide 21 L Anion Gap 13 BUN 19 Creatinine 0.84 Est GFR ( Amer) > 60 Est GFR (Non-Af Amer) > 60 Glucose 235 H Calcium 9.2 Total Bilirubin 1.2 AST 60 H ALT 63 H Alkaline Phosphatase 65 Total Protein 6.0 L Albumin 3.3 L Impressions: Chest X-Ray 02/24/19 06:12 IMPRESSION: 1. No acute pulmonary process identified. Abdomen/Pelvis CT 02/24/19 06:13 IMPRESSION: 1. Similar findings when compared to the prior study. 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 A mass in the gallbladder lumen is not entirely excluded.. 2. Fatty infiltration of the liver. 3. Stable right renal cyst. 4. Stable right common iliac vein metallic stent. 5. Postsurgical changes in the region of the rectum. 6. Remote hysterectomy. Abdomen Ultrasound 02/24/19 08:06 IMPRESSION: 1. Redemonstrated peripheral calcification of the gallbladder wall, in keeping with porcelain gallbladder. There is gall sludge and echogenic gallstone measuring 1.4 cm. Positive sonographic Papaps's sign. No biliary ductal dilation. Findings are concerning for acute cholecystitis. 2. Hepatic steatosis. Assessment & Plan - Diagnosis (1) Pancreatitis Qualifiers: Chronicity: acute Is this a current diagnosis for this admission?: Yes (2) Cholecystitis with cholelithiasis Qualifiers: Cholecystitis acuity: acute and chronic Is this a current diagnosis for this admission?: Yes Plan: Doing well after laparoscopic cholecystectomy. Will discharge patient home.
--- NOTE | 2019-02-26 09:20 | DISCHARGE SUMMARY E ---
Discharge Summary NAME: ETHAN LEDESMA : 1965 AGE: 53Y ADMITTED: 02/24/2019 DISCHARGED: 02/26/2019 DISCHARGE DIAGNOSIS: Gallstone pancreatitis, cholelithiasis with cholecystitis. PROCEDURE PERFORMED DURING HOSPITALIZATION: Laparoscopic cholecystectomy performed by Dr. Smith on 02/25/2019. HOSPITAL COURSE: The patient was admitted, placed on bowel rest and antibiotics. Her lipase returned to normal the following day and she was subsequently taken to the operating room where she underwent a laparoscopic cholecystectomy. She did well postoperatively. She was feeling quite well at the time of discharge and was tolerating a diet well. She is now being discharged to home in good condition. She is encouraged to stay active at home but avoid strenuous activity. She may return to work in 2 weeks. She is to follow up at [facility] in 2 weeks. She may resume her home medications. For pain she is to take Tylenol 325 mg 1 p.o. every 4 hours p.r.n. pain. She may resume her home medications. She is to call us for any problems. She may follow a diabetic diet at home. DICTATING PHYSICIAN: ESPERANZA GAGE M.D. [id number] PHY#: [id number] ID: [id number] JOB#: [id number] ACCT: [id number] cc:ESPERANZA GAGE M.D. >
--- NOTE | 2019-02-26 15:02 | PDOC PROGRESS REPORT ---
Subjective Progress Note for:: 02/26/19 Subjective:: Patient was seen on morning rounds . She was up walking back and forth to bathroom. She denies significant pain and states that the surgery went quite well. Reason For Visit: GALLSTONE PANCREATITIS Physical Exam Vital Signs: Temp Pulse Resp BP Pulse Ox 97.8 F 84 15 144/85 H 96 02/26/19 08:48 02/26/19 08:48 02/26/19 08:48 02/26/19 08:48 02/26/19 08:48 Intake & Output 02/25/19 02/26/19 02/27/19 06:59 06:59 06:59 Intake Total 1330 3682 360 Output Total 25 Balance 1330 3657 360 Weight 85.1 kg 84.9 kg General appearance: PRESENT: well-developed, well-nourished Head exam: PRESENT: normocephalic Respiratory exam: PRESENT: unlabored Neurological exam: PRESENT: alert, awake, normal gait Psychiatric exam: PRESENT: appropriate affect Skin exam: PRESENT: normal color Results Laboratory Results: 02/26/19 05:49 02/26/19 05:49 02/26/19 02/26/19 05:49 05:49 WBC 5.7 RBC 4.54 Hgb 11.5 L Hct 34.5 L MCV 76 L MCH 25.3 L MCHC 33.3 RDW 15.0 H Plt Count 164 Seg Neutrophils % 76.1 Lymphocytes % 18.1 Monocytes % 5.5 Eosinophils % 0.0 Basophils % 0.3 Absolute Neutrophils 4.4 Absolute Lymphocytes 1.0 Absolute Monocytes 0.3 Absolute Eosinophils 0.0 Absolute Basophils 0.0 Sodium 141.2 Potassium 4.2 Chloride 107 Carbon Dioxide 21 L Anion Gap 13 BUN 19 Creatinine 0.84 Est GFR ( Amer) > 60 Est GFR (Non-Af Amer) > 60 Glucose 235 H Calcium 9.2 Total Bilirubin 1.2 AST 60 H ALT 63 H Alkaline Phosphatase 65 Total Protein 6.0 L Albumin 3.3 L Impressions: Chest X-Ray 02/24/19 06:12 IMPRESSION: 1. No acute pulmonary process identified. Abdomen/Pelvis CT 02/24/19 06:13 IMPRESSION: 1. Similar findings when compared to the prior study. 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 A mass in the gallbladder lumen is not entirely excluded.. 2. Fatty infiltration of the liver. 3. Stable right renal cyst. 4. Stable right common iliac vein metallic stent. 5. Postsurgical changes in the region of the rectum. 6. Remote hysterectomy. Abdomen Ultrasound 02/24/19 08:06 IMPRESSION: 1. Redemonstrated peripheral calcification of the gallbladder wall, in keeping with porcelain gallbladder. There is gall sludge and echogenic gallstone measuring 1.4 cm. Positive sonographic Pappas's sign. No biliary ductal dilation. Findings are concerning for acute cholecystitis. 2. Hepatic steatosis. Assessment & Plan - Diagnosis (1) Pancreatitis Qualifiers: Chronicity: acute Is this a current diagnosis for this admission?: Yes (2) Acute cholecystitis Is this a current diagnosis for this admission?: Yes (3) Cholecystitis with cholelithiasis Qualifiers: Cholecystitis acuity: acute and chronic Is this a current diagnosis for this admission?: Yes - Plan Summary Plan Summary: She looks great from my standpoint. I agree with discharge today. Will continue to follow as outpatient. Please call if needed.
== END 2019-02-26 10:50 | disposition home or self-care (01) | DRG 417 ==
LOC: ER 05:52 → EH 11:13 → 4N 14:05
PROVIDERS: ADMIT Surgery; ATTEND Surgery
PROC: 0FT44ZZ Resection of Gallbladder, Percutaneous Endoscopic Approach (ICD-10-PCS; principal; 2019-02-25 14:45)
DX: K80.12 Calculus of gallbladder with acute and chronic cholecystitis without obstruction (principal); K85.10 Biliary acute pancreatitis without necrosis or infection; I10 Essential (primary) hypertension; E11.9 Type 2 diabetes mellitus without complications; D64.9 Anemia, unspecified; Z79.899 Other long term (current) drug therapy; Z79.84 Long term (current) use of oral hypoglycemic drugs; Z85.038 Personal history of other malignant neoplasm of large intestine; Z92.21 Personal history of antineoplastic chemotherapy; Z88.0 Allergy status to penicillin; Z80.0 Family history of malignant neoplasm of digestive organs; Z80.8 Family history of malignant neoplasm of other organs or systems
CPT/HCPCS: 36415; 71046; 74176; 76705; 790; 80053; 81001; 82962; 83690; 85025; 85027; 87040; 87077; 88304; 93005; 93010; 96374; 96375; 96376; 99284; J0330; J0696; J1100; J1170; J1885; J1956; J2250; J2270; J2405; J2704; J3010; J7030